=== PATIENT | male | born 1955 | race Caucasian/White ===

== ENCOUNTER → 2021-11-18 | Outpatient (CLI) | payer BC, MEDICARE ==
--- NOTE | 2021-11-18 11:15 | P.SLEEP ---
History of Present Illness DATE: 11/18/2021 CONSULTATION/NEW PATIENT EVALUATION HISTORY OF PRESENT ILLNESS/SLEEP-WAKE EVALUATION: 66year old gentleman had been evaluated in the sleep center for possible obstructive sleep apnea hypopnea syndrome. SLEEP SCHEDULE: Usually sleep schedule on weekdays9 PM to 7 AM], during days off[ the same schedule 9 PM to 7 AM]. FALLING ASLEEP: Usually no significant problems with falling asleep, no TV in bedroom]. DURING SLEEP:Patient usually sleeps on the side position, with loud snoring and awakenings from sleep with nocturia] No history of hypnogogical hallucinations, sleep paralysis, or cataplexy. DURING THE DAY/WAKE STATE: Sometimes patient feels sleepiness during the day]. [place] sleepiness scale i 9] Usually patient does not take naps]. PAST MEDICAL HISTORY: Hyperlipidemia, status post Right leg thrombosis ]. PAST SURGICAL HISTORY: Surgical treatment of blood clot in right leg]. MEDICATIONS: Xarelto 20 mg once a day, ramipril 2.5 mg once a day, simvastatin 20 mg once a day, aspirin 81 mg once a day]. SOCIAL HISTORY: Positive for smoking for about 40 years on and off] smoking, alcohol recovery for about 5 years . FAMILY HISTORY:Heart problems]. REVIEW OF SYSTEMS:Loud snoring, multiple awakenings from sleep]. No fevers. No double vision. No recent chest pain. No shortness of breath. No abdominal pain. No bleeding episodes. No blood in urine. No seizure episodes. PHYSICAL EXAMINATION: GENERAL: A pleasant patient without any distress. VITAL SIGNS: B 100/64] , HR63] , R 14] , weigh 199.4] pounds, heigh 5 ][place] 8-3/4 ]inches, body mass inde 29.6] . HEENT: PERRLA, EOMI. Evaluation of oropharynx showed tongue protrudes midline, low position of soft palate Mallampat 3]. NECK: Supple. No JVD. Thyroid is not palpable. 18] inches in circumference. LUNGS: Clear to percussion and to auscultation. Good air exchange. No wheezing or rhonchi. HEART: S1, S2 regular. No murmurs, gallops or rubs. ABDOMEN: Soft and nontender. Bowel sounds are present. No organomegaly appreciated. EXTREMITIES: No clubbing or cyanosis. TONNAGE COMPILATION CLERK: Awake, alert, and oriented x3. Cranial nerves 2 to 7 intact. There is no fasciculation or atrophy noted. No focal deficits observed. ASSESSMENT: 1. Loud snoring, low position of soft palate Mallampati 3, multiple awakenings from sleep with nocturia, wide neck 18 inches in circumference. Obstructive sleep apnea-hypopnea syndrome]. 2. Status post a right leg thrombosis]. 3 history of macular degeneration]. 4. []. PLAN: 1. Home sleep apnea test for evaluation of patient's breathing during sleep. 2. CPAP/BiPAP titration if sleep study confirms obstructive sleep apnea- hypopnea syndrome. 3. Preferable position during sleep on the side. 4. No driving if patient feels any sleepiness. Patient is aware of civil and criminal liability for unsafe driving. 5. Sleep hygiene with regular sleep time for at least 7.5-8 hours. 6. Watching weight. Thank you very much for referring this patient for consultation. Sincerely, Prabhu Castillo MD, PhD, FAASM. Diplomat of [place] [employer], Sleep Medicine Board by [place] [employer] [place] [employer] of [employer] [facility] [place] [facility] Note - Sleep Note Sleep Note: Temperature: Pulse Rate: Respiratory Rate: Blood Pressure: SpO2: Height: Weight: BMI: Neck Circumference:
== END ==
LOC: SLEEP 10:38
PROVIDERS: ATTEND Internal Medicine
DX: G47.33 Obstructive sleep apnea (adult) (pediatric) (principal); R35.1 Nocturia; E78.5 Hyperlipidemia, unspecified; F17.200 Nicotine dependence, unspecified, uncomplicated; Z98.890 Other specified postprocedural states; Z86.69 Personal history of other diseases of the nervous system and sense organs; Z86.718 Personal history of other venous thrombosis and embolism; Z79.01 Long term (current) use of anticoagulants
CPT/HCPCS: 99211

== ENCOUNTER 2024-06-27 09:56 | Emergency (ER) | payer BC, MEDICARE ==
[2024-06-27 10:03] VITALS: BP 155/77; PULSE 71; RESP 20; TEMP 98
--- NOTE | 2024-06-27 10:23 | ED ---
General Adult HPI - General Chief complaint: Extremity Injury, Lower Stated complaint: Fall, right hip injury Time Seen by Provider: 06/27/24 10:05 Source: patient, RN notes reviewed Mode of arrival: ambulatory Limitations: no limitations - History of Present Illness Initial comments: 69-year-old male presents to the emergency department sent in by Dr. Granger. Patient reports that he took a trip and fall 8 days ago. He landed on his right hip. He states that since then he has had difficulty getting around. He followed up with up with orthopedics. He states that he was told his hip is broken and to come to the emergency department. He is on Xarelto as he has a prior history of blood clots. - Related Data Home Medications Medication Instructions Recorded Confirmed Aspirin EC [Ecotrin Low Dose] 81 mg PO HS 06/27/24 06/27/24 HYDROcodone/APAP 7.5-325MG [V[place] 1 tab PO Q8H PRN 06/27/24 06/27/24 7.5-325] Rivaroxaban [Xarelto] 20 mg PO HS 06/27/24 06/27/24 Simvastatin [Zocor] 80 mg PO HS 06/27/24 06/27/24 ramipriL [Altace] 2.5 mg PO HS 06/27/24 06/27/24 Allergies Allergy/AdvReac Type Severity Reaction Status Date / Time No Known Allergies Allergy Verified 06/27/24 12:10 Review of Systems ROS Statement: Those systems with pertinent positive or pertinent negative responses have been documented in the HPI. ROS Other: All systems not noted in ROS Statement are negative. Past Medical History Past Medical History: Deep Vein Thrombosis (DVT) History of Any Multi-Drug Resistant Organisms: None Reported Past Surgical History: No Surgical Hx Reported Past Psychological History: No Psychological Hx Reported Smoking Status: Former smoker Past Alcohol Use History: None Reported, Occasional Past Drug Use History: None Reported General Exam Limitations: no limitations General appearance: alert, in no apparent distress Head exam: Present: atraumatic, normocephalic, normal inspection Eye exam: Present: normal appearance, PERRL, EOMI. Absent: scleral icterus, conjunctival injection, periorbital swelling ENT exam: Present: normal exam, mucous membranes moist Respiratory exam: Present: normal lung sounds bilaterally. Absent: respiratory distress, wheezes, rales, rhonchi, stridor Cardiovascular Exam: Present: regular rate, normal rhythm, normal heart sounds. Absent: systolic murmur, diastolic murmur, rubs, gallop, clicks Extremities exam: Present: other (Right leg lower extremity edema, shortening, external rotation, neurovascularly intact). Absent: normal inspection, full ROM Neurological exam: Present: alert, oriented X3 Psychiatric exam: Present: normal affect, normal mood Skin exam: Present: warm, dry, intact, normal color. Absent: rash Course Vital Signs 06/27/24 10:00 Temperature 98 F Pulse Rate 71 Respiratory 20 Rate Blood Pressure 155/77 O2 Sat by Pulse 96 Oximetry Medical Decision Making - Medical Decision Making Was pt. sent in by a medical professional or institution (, PA, COAGULATING BATH OPERATOR, urgent care, hospital, or senior living...) When possible be specific @ -Patient was sent in by Dr. Granger, orthopedics for hip fracture patient will be admitted to Dr. Granger with medical consultation Did you speak to anyone other than the patient for history (EMS, parent, family, police, friend...)? What history was obtained from this source @ -No Did you review nursing and triage notes (agree or disagree)? Why? @ -I reviewed and agree with nursing and triage notes Were old charts reviewed (outside hosp., previous admission, EMS record, old EKG, old radiological studies, urgent care reports/EKG's, senior living records)? Report findings @ -No old charts were reviewed Differential Diagnosis (chest pain, altered mental status, abdominal pain women, abdominal pain men, vaginal bleeding, weakness, fever, dyspnea, syncope, headache, dizziness, GI bleed, back pain, seizure, CVA, palpatations, mental health, musculoskeletal)? @ -Differential Musculoskeletal Muscular strain, contusion, ligament sprain, fracture, arthritis, septic arthritis, bursitis, cellulitis, muscle spasm, nerve compression, DVT, arterial occlusion, herpes zoster, electrolyte abnormality, tumor.... This is not meant to be in all inclusive list EKG interpreted by me (3pts min.). @ -EKG atEKG at 1039 shows sinus rhythm rate 65, RI 129, QRS 89, QTQTc 040064 X-rays interpreted by me (1pt min.). @ -X-ray of the chest shows no acute process X-ray of the pelvis showsRight proximal femur subcapital fracture CT interpreted by me (1pt min.). @ -None done U/S interpreted by me (1pt. min.). @ -None done What testing was considered but not performed or refused? (CT, X-rays, U/S, labs)? Why? @ -None What meds were considered but not given or refused? Why? @ -None Did you discuss the management of the patient with other professionals (professionals i.e. , PA, COAGULATING BATH OPERATOR, lab, RT, psych nurse, social science professor, steel die printer, teacher, navigating officer, correctional case manager)? Give summary @ -No Was smoking cessation discussed for >3mins.? @ -No Was critical care preformed (if so, how long)? @ -No Were there social determinants of health that impacted care today? How? (Homelessness, low income, unemployed, alcoholism, drug addiction, transportati on, low edu. Level, literacy, decrease access to med. care, penitentiary, rehab)? @ -No Was there de-escalation of care discussed even if they declined (Discuss DNR or withdrawal of care, Hospice)? DNR status @ -No What co-morbidities impacted this encounter? (DM, HTN, Smoking, COPD, CAD, Cancer, CVA, ARF, Chemo, Hep., AIDS, mental health diagnosis, sleep apnea, morbid obesity)? @ -None Was patient admitted / discharged? Hospital course, mention meds given and route, prescriptions, significant lab abnormalities, going to OR and other pertinent info. @ -Admitted. Patient presented to the emergency department for evaluation of right hip fracture. Presurgical screening including CBC, CMP, coagulation studies, EKG, and chest x-ray were performed.No significant leukocytosis, hemoglobin 12.4; normal coagulation studies; CMP shows mild hyponatremia with a sodium of 133 otherwise nonactionable. X-rays were performed which shows a right proximal femur subcapital fracture. Chest x-ray shows no acute process. Admission orders were entered and the patient left AGAINST MEDICAL ADVICE against my knowledge. Case discussed with Dr. Cabrera Undiagnosed new problem with uncertain prognosis? @ -No Drug Therapy requiring intensive monitoring for toxicity (Heparin, Nitro, Insulin, Cardizem)? @ -No Were any procedures done? @ -No Diagnosis/symptom? @ -Hip fracture, left AGAINST MEDICAL ADVICE Acute, or Chronic, or Acute on Chronic? @ -Acute Uncomplicated (without systemic symptoms) or Complicated (systemic symptoms)? @ -Default Side effects of treatment? @ -No Exacerbation, Progression, or Severe Exacerbation? @ -No Poses a threat to life or bodily function? How? (Chest pain, [place], CA, pneumonia, PE, COPD, DKA, ARF, appy, cholecystitis, CVA, Diverticulitis, Homicidal, Suicidal, threat to staff... and all critical care pts) @ -No - Lab Data Result diagrams: 06/27/24 10:47 06/27/24 11:38 Lab Results 06/27/24 06/27/24 06/27/24 Range/Units 10:47 10:47 11:38 WBC 10.0 (3.8-10.6) k/uL RBC 3.92 L (4.30-5.90) m/uL Hgb 12.4 L (13.0-17.5) gm/dL Hct 37.7 L (39.0-53.0) % MCV 96.2 (80.0-100.0) fL MCH 31.6 (25.0-35.0) pg MCHC 32.9 (31.0-37.0) g/dL RDW 13.5 (11.5-15.5) % Plt Count 313 (150-450) k/uL MPV 7.6 Neutrophils % 76 % Lymphocytes % 14 % Monocytes % 6 % Eosinophils % 1 % Basophils % 0 % Neutrophils # 7.7 (1.3-7.7) k/uL Lymphocytes # 1.4 (1.0-4.8) k/uL Monocytes # 0.6 (0-1.0) k/uL Eosinophils # 0.1 (0-0.7) k/uL Basophils # 0.0 (0-0.2) k/uL PT 12.2 (10.0-12.5) sec INR 1.1 (<1.2) APTT 25.2 (22.0-30.0) sec Sodium 133 L (137-145) mmol/L Potassium 4.5 (3.5-5.1) mmol/L Chloride 100 (98-107) mmol/L Carbon Dioxide 24 (22-30) mmol/L Anion Gap 9 mmol/L BUN 14 (9-20) mg/dL Creatinine 0.84 (0.66-1.25) mg/dL Est GFR (CKD-EPI)AfAm >90 (>60 ml/min/1.73 sqM) Est GFR (CKD-EPI)NonAf >90 (>60 ml/min/1.73 sqM) Glucose 108 H (74-99) mg/dL Calcium 9.1 (8.4-10.2) mg/dL Total Bilirubin 0.9 (0.2-1.3) mg/dL AST 49 (17-59) U/L ALT 69 H (4-49) U/L Alkaline Phosphatase 61 (38-126) U/L Total Protein 7.2 (6.3-8.2) g/dL Albumin 4.2 (3.5-5.0) g/dL Disposition Clinical Impression: Fracture of hip, Left against medical advice Disposition: LEFT AGAINST MEDICAL ADVICE Condition: Poor Referrals: Khadijah Smyth DO [Primary Care Provider] - 1-2 days
[2024-06-27] MEDS: MORPHINE SULFATE 4 MG/ML SYRINGE IVP STA (10:44)
--- NOTE | 2024-06-27 11:03 | XR ---
EXAMINATION TYPE: XR chest 2V DATE OF EXAM: 06/27/2024 10:56 AM COMPARISON: None TECHNIQUE: XR chest 2V Frontal and lateral views of the chest. CLINICAL INDICATION:Male, 69 years old with history of fall, surgery; FINDINGS: Lungs/Pleura: There is flattening of the diaphragm with increased lucency of the lungs. No evidence o f pneumothorax, pleural effusion or focal consolidation. Pulmonary vascularity: Unremarkable. Heart/mediastinum: Cardiomediastinal silhouette is unremarkable. Atherosclerotic calcifications are seen in the aorta. Musculoskeletal: No acute osseous pathology. IMPRESSION: No acute process. [facility], , 06/27/2024 11:01 AM
--- NOTE | 2024-06-27 11:05 | XR ---
EXAMINATION TYPE: XR pelvis AP view DATE OF EXAM: 06/27/2024 10:56 AM INDICATION: Patient age:Male; 69 years old; Reason for study: fall, surgery; PHH. pain COMPARISON: None TECHNIQUE: The pelvis was examined in a single projection. FINDINGS: Acute right proximal femur subcapital fracture with shortening. No dislocation. There is no soft tissue abnormality. Right-sided pelvic phlebolith. IMPRESSION: Acute right proximal femur subcapital fracture. [facility], , 06/27/2024 11:03 AM
[2024-06-27 11:08] LABS: Basophils % (A) 0 %; Eosinophils # (A) 0.1 k/uL (0-0.7); Eosinophils % (A) 1 %; HCT 37.7 % (39.0-53.0); HGB 12.4 gm/dL (13.0-17.5); Lymphocytes # (A) 1.4 k/uL (1.0-4.8); Lymphocytes % (A) 14 %; MCH 31.6 pg (25.0-35.0); MCHC 32.9 g/dL (31.0-37.0); MCV 96.2 fL (80.0-100.0); Mean Platelet Volume 7.6; Monocytes # (A) 0.6 k/uL (0-1.0); Monocytes % (A) 6 %; Neutrophils # (A) 7.7 k/uL (1.3-7.7); Neutrophils % (A) 76 %; Platelet Count 313 k/uL (150-450); RBC 3.92 m/uL (4.30-5.90); RDW 13.5 % (11.5-15.5)
[2024-06-27] MEDS ORDERED: KETOROLAC 15 MG/ML 1 ML VIAL IVP PRN (11:11)
[2024-06-27] MEDS ORDERED: NALOXONE 0.4 MG/ML 1 ML VIAL IV PRN (11:11)
[2024-06-27] MEDS ORDERED: HYDROmorphone 0.5 MG/0.5 ML SYRINGE IVP PRN (11:11)
[2024-06-27] MEDS ORDERED: HYDROmorphone 1 MG/ML 1 ML SYRINGE IVP PRN (11:11)
[2024-06-27 11:26] LABS: INR 1.1 (<1.2); Partial Thromboplastin Time 25.2 sec (22.0-30.0); Prothrombin Time 12.2 sec (10.0-12.5)
--- NOTE | 2024-06-27 11:35 | US ---
EXAMINATION TYPE: US venous doppler duplex LE RT DATE OF EXAM: 06/27/2024 10:28 AM COMPARISON: NONE CLINICAL INDICATION: Male, 69 years old with history of LE swelling, hip fx; Right hip fracture. Swel ling in right leg., Pain TECHNIQUE: The lower extremity deep venous system is examined utilizing real time linear array sonog tricia with graded compression, color doppler sonography, and spectral doppler. SIDE PERFORMED: Right FINDINGS: VESSELS IMAGED: Common Femoral Vein Deep Femoral Vein Greater Saphenous Vein * Femoral Vein Popliteal Vein Small Saphenous Vein * Proximal Calf Veins (* superficial vessels) Right Leg: No evidence for DVT, Color Doppler imaging shows patency of the vessels. Spectral wavefor ms are within normal limits. IMPRESSION: No evidence of deep vein thrombosis of the right lower extremity. [facility], , 06/27/2024 11:33 AM
[2024-06-27 12:51] LABS: ALT 69 U/L (4-49); AST 49 U/L (17-59); African American GFR (CKD) >90 (>60 ml/min/1.73 sqM); Albumin 4.2 g/dL (3.5-5.0); Alkaline Phosphatase 61 U/L (38-126); Anion Gap 9 mmol/L; Blood Urea Nitrogen 14 mg/dL (9-20); Calcium 9.1 mg/dL (8.4-10.2); Carbon Dioxide 24 mmol/L (22-30); Chloride 100 mmol/L (98-107); Glucose 108 mg/dL (74-99); Non-African American GFR(CKD) >90 (>60 ml/min/1.73 sqM); Potassium 4.5 mmol/L (3.5-5.1); Sodium 133 mmol/L (137-145); Total Bilirubin 0.9 mg/dL (0.2-1.3); Total Protein 7.2 g/dL (6.3-8.2)
== END 2024-06-27 12:16 | disposition left against medical advice (07) ==
LOC: EC 09:56
DX: S72.011A Unspecified intracapsular fracture of right femur, initial encounter for closed fracture (principal); Z87.891 Personal history of nicotine dependence; Z53.29 Procedure and treatment not carried out because of patient's decision for other reasons; W01.0XXA Fall on same level from slipping, tripping and stumbling without subsequent striking against object, initial encounter
CPT/HCPCS: 36415; 93005; 80053; 85025; 85610; 85730; 72170; 71046; 93971; 99284; 96374; J2270